=== PATIENT | female | born 1985 ===

== ENCOUNTER → 2021-11-18 | Outpatient (CLI) | payer OTHER | END | disposition home or self-care (01) | LOC: SRCNTR 14:38 | PROVIDERS: ATTEND Hospitalist | DX: C50.919 Malignant neoplasm of unspecified site of unspecified female breast (principal) | CPT/HCPCS: Q3014 ==

== ENCOUNTER → 2022-03-24 | Outpatient (CLI) | payer OTHER ==
[~2022-03-24] VITALS: Ht 160 cm; Wt 64.8 kg
[~2022-03-24] MED LIST: ALPR-707 PO; VENL25TA47 PO
[2022-03-24 13:16] VITALS: BP 137/81
== END | disposition home or self-care (01) ==
LOC: SRCNTR 10:25
PROVIDERS: ATTEND Hospitalist
DX: Z08 Encounter for follow-up examination after completed treatment for malignant neoplasm (principal); Z85.3 Personal history of malignant neoplasm of breast; Z90.11 Acquired absence of right breast and nipple
CPT/HCPCS: G0463; Z7500